=== PATIENT | male | born 1965 | race Caucasian/White ===

== ENCOUNTER 2021-02-16 16:06 | Emergency (ER) | payer OTHER ==
[2021-02-16 17:19] VITALS: BP 141/76
--- NOTE | 2021-02-16 19:08 | Emergency Department Report ---
Chief Complaint: Eye Problems Stated Complaint: LT EYE RED Time Seen by Provider: 02/16/21 18:41 - Exam Vital Signs: Vital Signs 02/16/21 17:09 Temperature 97.7 F Pulse Rate 50 L Respiratory 18 Rate Blood Pressure 141/76 O2 Sat by Pulse 97 Oximetry MSE screening note: Focused history and physical exam performed. Due to findings the following was ordered: ED Disposition for MSE Clinical Impression: Subconjunctival hemorrhage of left eye Disposition: DC-01 TO HOME OR SELFCARE Is pt being admited?: No Condition: Stable Instructions: Subconjunctival Hemorrhage Referrals: [facility] [Provider Group] - 3-5 Days
--- NOTE | 2021-02-16 19:21 | Event Note ---
ED Screening Note Date of service: 02/16/21 Time: 19:19 ED Screening Note: Patient sent here from urgent care for CT head He states he went to be evaluated at the urgent care for blood in his left eye Patient states the blood popped up after lifting a heavy item last Sunday, however it has been improving He denies any vision changes,, numbness/tingling/weakness in his limbs, difficulty with speech/ambulation He admits to 4 days of intermittent dizziness that he describes as room spinning The dizziness occurs mainly with getting up in the morning and laying down at night per patient He is on Eliquis for A. fib This initial assessment/diagnostic orders/clinical plan/treatment(s) is/are subject to change based on patients health status, clinical progression and re- assessment by fellow clinical providers in the ED. Further treatment and workup at subsequent clinical providers discretion. Patient/guardian urged not to elope from the ED as their condition may be serious if not clinically assessed and managed. Initial orders include: Labs EKG CT head-discussed with Dr. Alvarez who recommends with imaging
[2021-02-16 19:32] LABS: Basophils % (Auto) 0.4 % (0.0-1.8); Eosinophils # (Auto) 0.3 K/mm3 (0.0-0.4); Eosinophils % (Auto) 3.3 % (0.0-4.3); Hematocrit 43.3 % (35.5-45.6); Hemoglobin 14.3 gm/dl (11.8-15.2); Lymphocytes # (Auto) 3.6 K/mm3 (1.2-5.4); Lymphocytes % (Auto) 42.2 % (13.4-35.0); Mean Corpuscular HGB Conc 33 % (32-34); Mean Corpuscular Volume 80 fl (84-94); Monocytes # (Auto) 0.6 K/mm3 (0.0-0.8); Platelet Count 239 K/mm3 (140-440); Red Blood Count 5.45 M/mm3 (3.65-5.03); Red Cell Distribution Width 13.9 % (13.2-15.2)
--- NOTE | 2021-02-16 19:50 | Cat Scan Report ---
CT head/brain wo con INDICATION / CLINICAL INFORMATION: 55 years Male; dizziness LT side pain x4days. TECHNIQUE: Routine CT head without contrast. All CT scans at this location are performed using CT dos e reduction for ALARA by means of automated exposure control. COMPARISON: None. FINDINGS: BRAIN / INTRACRANIAL CONTENTS: The brain appears to demonstrate appropriate attenuation for age. This mild asymmetry of the lateral ventricles which appears to be developmental. No definitive obstructin g lesions are identified. Furthermore, there is no clear CT evidence of acute intracranial hemorrhage or significant mass effect. ORBITS: No significant abnormality of visualized orbits. SINUSES / MASTOIDS: There is a small air-fluid level along the visualized posterior right maxillary s inus. CRANIOCERVICAL JUNCTION: No significant abnormality. ADDITIONAL FINDINGS: None. IMPRESSION: 1. There is no clear CT evidence of acute intracranial process. 2. There is a small air-fluid level along the visualized posterior right maxillary sinus. Signer Name: Andreas Moreno MD Signed: 02/16/2021 7:45 PM Workstation Name: [id number]
[2021-02-16 19:55] LABS: Alanine Aminotransferase 35 units/L (7-56); Albumin 4.9 g/dL (3.9-5); Blood Urea Nitrogen 16 mg/dL (9-20); Calcium 10.1 mg/dL (8.4-10.2); Hemolysis Index 7
[2021-02-16 20:02] LABS: BUN/Creatinine Ratio 23
--- NOTE | 2021-02-16 21:28 | Emergency Department Report ---
ED General Adult HPI - General Chief complaint: Eye Problems Stated complaint: LT EYE RED Time Seen by Provider: 02/16/21 18:41 Source: patient Mode of arrival: Ambulatory Limitations: No Limitations - History of Present Illness Initial comments: 55-year-old male on Xarelto presents emerged department complaining having a red eye after heavy lifting about 4 days ago. States that he was lifting some heavy stuff all day, he awoke the following morning he noticed some blood in his left eye with no pain. He was seen in urgent care this morning advised him to emerge department for CT scan he reports no weakness, dizziness, slurred speech states that he felt great but does have a history of vertigo which started about 5 months ago when he had developed Covid. Improves with: none Worsens with: none Associated Symptoms: denies: confusion, chest pain, diaphoresis, loss of appetite, shortness of breath, syncope - Related Data Allergies Allergy/AdvReac Type Severity Reaction Status Date / Time No Known Allergies Allergy Unverified 02/16/21 17:10 ED Review of Systems ROS: Stated complaint: LT EYE RED Other details as noted in HPI Comment: All other systems reviewed and negative ED Past Medical Hx - Past Medical History Previous Medical History?: Yes Hx Hypertension: Yes - Surgical History Past Surgical History?: Yes Additional Surgical History: coronary ablaision - Social History Smoking Status: Never Smoker ED Physical Exam - General Limitations: No Limitations General appearance: alert, in no apparent distress - Head Head exam: Present: atraumatic, normocephalic - Eye Eye exam: Present: normal appearance, PERRL, EOMI - Expanded Eye Exam Expanded Eyelids: Normal Inspection: Left Pupils: Regular, Round: Bilateral Sclera/Conjunctival: Normal Inspection: Right, Hemorrhage: Left Anterior chamber: Normal Inspection: Bilateral - ENT ENT exam: Present: mucous membranes moist - Neck Neck exam: Present: normal inspection - Respiratory Respiratory exam: Present: normal lung sounds bilaterally. Absent: respiratory distress - Cardiovascular Cardiovascular Exam: Present: regular rate, normal rhythm. Absent: systolic murmur, diastolic murmur, rubs, gallop - GI/Abdominal GI/Abdominal exam: Present: soft, normal bowel sounds - Rectal Rectal exam: Present: deferred - Extremities Exam Extremities exam: Present: normal inspection - Back Exam Back exam: Present: normal inspection - Neurological Exam Neurological exam: Present: alert, oriented X3 - Psychiatric Psychiatric exam: Present: normal affect, normal mood - Skin Skin exam: Present: warm, dry, intact, normal color. Absent: rash ED Course Vital Signs 02/16/21 17:09 Temperature 97.7 F Pulse Rate 50 L Respiratory 18 Rate Blood Pressure 141/76 O2 Sat by Pulse 97 Oximetry ED Medical Decision Making - Lab Data Result diagrams: 02/16/21 19:15 02/16/21 19:15 - Radiology Data Radiology results: report reviewed CT scan is normal Critical care attestation.: If time is entered above; I have spent that time in minutes in the direct care of this critically ill patient, excluding procedure time. ED Disposition Clinical Impression: Subconjunctival hemorrhage of left eye Disposition: DC-01 TO HOME OR SELFCARE Is pt being admited?: No Does the pt Need Aspirin: No Condition: Stable Instructions: Subconjunctival Hemorrhage Referrals: [facility] [Provider Group] - 3-5 Days
--- NOTE | 2021-02-17 14:19 | Electrocardiograph Report ---
[facility] Test Date: 2021-02-16 Test Time: 19:19:05 Pat Name: LALY FLEMING Department: Room: Gender: M Cro: BETTY : 1965 Requested By: GURINDER YOUNG Order Number: [id number] Reading MD: Philip Nguyen Measurements Intervals [place] Rate: 46 P: 59 MD: 157 QRS: 16 QRSD: 92 T: 40 QT: 470 QTc: 413 Interpretive Statements Sinus bradycardia No previous ECG available for comparison Electronically Signed On 02-17-2021 14:19:18 EDT by Philip Nguyen
== END 2021-02-16 21:40 | disposition home or self-care (01) ==
LOC: ED 16:06
DX: H11.32 Conjunctival hemorrhage, left eye (principal); R51.9 Headache, unspecified; I10 Essential (primary) hypertension; Z98.890 Other specified postprocedural states
CPT/HCPCS: 36415; 70450; 80053; 84484; 85025; 93005